=== PATIENT | female | born 1990 | race Caucasian/White ===

== ENCOUNTER 2016-12-31 07:21 | Outpatient (CLI) | payer OTHER ==
--- OUTSIDE RECORDS SUMMARY | 2016-12-31 07:25 | XMS ---
:1990 Author Organization [facility] Care Team Providers Name Role Phone Matt Mcgill Unavailable Unavailable Matt Mcgill Unavailable Unavailable Matt Mcgill Unavailable Unavailable Encounters Encounter Providers Location Date Indications Data Source(s) Emergency Dept Attender: Matt 06/16/2015 [facility] Mcgill DOAdmitter: 02:35:00 PM Matt Mcgill DO HANDLE [employer]ER Insurance Providers Payer name Policy type Policy ID Covered Covered constitution party's Policy Plan / Coverage constitution party ID relationship to [place] Information type loredo [facility] Self Pay [id number] [employer] [id number] NETWORK Problems, Conditions, and Diagnoses Code Display Name Description Effective Dates Data Source(s) 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
--- NOTE | 2016-12-31 09:40 | CT ---
CT ABDOMEN WITHOUT CONTRAST: HISTORY: Pain. 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 Periumbilical pain at the surgical site. COMPARISON: None. FINDINGS: The lungs bases are clear. No pericardial effusion. Evaluation is limited without intravenous contrast. Near the umbilicus is an area of soft tissue in flammation. There is moderate fat stranding which is superficial to the linea alba and rectus abdom inus sheaths. The rectus abdominus muscles do not have significant hematoma. The noncontrast-enhanced liver, spleen, pancreas, and kidneys are unremarkable. IMPRESSION: Inflammatory changes near the umbilicus extending from the linea alba to superior soft tissues and s kin with skin thickening. Evaluation for an abscess is limited without intravenous contrast. No re ctus sheath hematoma. No intraperitoneal abnormality. POS: H
== END 2016-12-31 07:22 | disposition home or self-care (01) ==
LOC: CT 07:21
PROVIDERS: ATTEND Obstetrics & Gynecology
DX: K42.9 Umbilical hernia without obstruction or gangrene (principal); R10.9 Unspecified abdominal pain; G89.18 Other acute postprocedural pain
CPT/HCPCS: 74150

== ENCOUNTER 2019-11-10 09:09 | Outpatient (CLI) | payer BC | END 2019-11-10 09:10 | disposition home or self-care (01) | LOC: CTENTCT 09:09 | PROVIDERS: ATTEND Otolaryngology Plastic Surgery within the Head & Neck | DX: J32.9 Chronic sinusitis, unspecified (principal) | CPT/HCPCS: 70486 ==

== ENCOUNTER 2021-05-07 10:58 | Outpatient (CLI) | payer BC | END 2021-05-07 10:59 | disposition home or self-care (01) | LOC: CTENTCT 10:58 | PROVIDERS: ATTEND Otolaryngology Plastic Surgery within the Head & Neck | DX: J32.9 Chronic sinusitis, unspecified (principal) | CPT/HCPCS: 70486 ==